=== PATIENT | male | born 1950 | race Two or more races ===

== ENCOUNTER 2023-03-18 10:33 | Outpatient (AMB) | payer OTHER, MEDICARE, SELFPAY ==
--- NOTE | 2023-03-18 10:46 | A.OFFVIS_ITS ---
Intake Vital Signs 03/18/23 10:55 Height 5 ft 6 in Weight 187 lb BMI 30.2 BP 112/70 Blood Pressure Location Rt brachial Position Sitting Pulse 69 Pulse Source Pulse Oximeter Pulse Oximetry (%) 96 Oxygen Delivery Method Room Air Intake Visit Reasons: NPV-Memory Changes-LVM Intake Note: Pt presents to the office today for a new patient visit or memory changes. Pt is here with his . Pts states that he had a hospital visit in September and since then has been asking questions and within a half hour would repeat the same questions. Pts also states she keeps an eye on him whenever he is using the stove because he might forget to turn it off. Pts is most concerned about the repetition of questions and comments. Accompanied by: Spouse Allergies No Known Allergies Allergy (Verified 03/18/23 10:47) Medication List - Last Reconciled 03/18/23 by Loulou Mason MD aspirin 81 mg PO DAILY atorvastatin 10 mg PO BEDTIME carvedilol 25 mg PO BID digoxin 125 mcg PO DAILY famotidine 40 mg PO DAILY furosemide 20 mg PO BID rivaroxaban (Xarelto) 20 mg PO DAILY sacubitril-valsartan 97-103 mg (Entresto) 1 tab PO BID HPI HPI Comments History of Present Illness Details 72y/o male comes here for evaluation of memory issues.He is accompanied by his who helps with history.His noticed short term memory issues for 18 mths now. He had cardiac issues ( Atrial fibrillation, CHF, PE)and was hospitalized twice since last year. His home PT and VNA noticed that he was repeating questions, had difficulty following instructions etc. Now he frequently repeats himself, frequently loses his keys around the house,confused with dates etc. He is independent in all his ADLs. He has not been driving since his hospitalization 5 mths ago. He denies any depression anxiety.He has insomnia. He can fall asleep but has frequent arousals. He denies witnessed apneas or gasping arousals.He has poor sleep hygiene and sleeps during daytime. 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 He has h/o alcohol dependance- stopped 1 year ago.He used to drink 3-4 beers a days since age 13. His father was an alcoholic. [facility] Medical History (Updated 03/18/23 @ 11:36 by Loulou Mason MD) Alcohol dependence Borderline hyperlipidemia Cardiomyopathy CHF (congestive heart failure) Cognitive disorder Dilation of thoracic aorta Dupuytren contracture Exotropia Hypertension Mitral regurgitation Paroxysmal atrial fibrillation Poor sleep hygiene Pulmonary embolism Retinal drusen Right shoulder pain Sleep disorder Snoring Surgical History History of hernia repair History of hydrocelectomy Family History Father Cerebrovascular accident (CVA) Alcoholism UGI bleed Mother Diabetes Social History Household Members: Spouse and Family Housing: House Alcohol intake: never Patient Tobacco Use Status: Never used Tobacco service: No Current occupational status: retired Physical Exam Vital Signs: Last Vital Signs Pulse 69 03/18/23 10:55 BP 112/70 03/18/23 10:55 Pulse Ox 96 03/18/23 10:55 Oxygen Delivery Method Room Air 03/18/23 10:55 BMI result Body Mass Index 30.2 Const General: cooperative, healthy appearing and comfortable Nutritional Appearance: overweight Orientation/consciousness: patient oriented x3 Eyes Pupils: Equal, round and reactive pupils present Neuro Other: mild generalized weakness Gait- slow General: patient oriented x3, tone normal, moves all extremities and no focal motor deficits Cranial nerves: Yes Facial sensation intact/muscles of mastication intact, Yes Equal, round and reactive pupils present, Yes Bilaterally intact EOM present, Yes Nystagmus not present, Yes Normal facial strength present, Yes Midline tongue present and Yes Symmetric palate elevation present Gait exam (Neuro): Antalgic gait present Motor exam (neuro): 5/5 motor strength present throughout, no tremor noted and Normal motor muscle tone present throughout Deep tendon reflexes (DTR's): Right triceps reflex intensity grade: 1+, Left triceps reflex intensity grade: 1+, Rt Biceps (C5, C6): 1+, Left biceps reflex intensity grade: 1+, Right brachioradialis reflex intensity grade: 1+, Left brachioradialis reflex intensity grade: 1+, Right patellar reflex intensity grade: 1+ and Left patellar reflex intensity grade: 1+ Coordination: [id number] test normal Psych Appearance: grossly normal Orientation What is the (year) (season) (date) (day) (month)?: year, season, date and month Where are we (state) (county) (town or city) (hospital) (floor)?: state, county, town or city, hospital/clinic and floor Registration Name of 3 unrelated objects clearly and slowly, then ask patient to repeat all 3 of them. (1st repeat determines score. Make sure they can repeat all three): object 1, object 2 and object 3 Attention & Calculation (CHOOSE ONE) Spell WORLD backwards (DLROW): 5 letters Recall Ask patient to repeat the 3 items from question #3.: object 1 Language Show patient a wristwatch & ask what it is. Repeat for pencil.: watch and pencil Ask the patient to repeat the phrase 'No ifs, ands, or buts' after you.: correct Ask the patient to 'take a piece of paper with their right hand' 'fold paper in half' 'place paper on floor': take paper in right hand, fold paper in half and place paper on floor Print the sentence 'CLOSE YOUR EYES' on a piece. If patient actually closes eyes then score.: followed written direction Give patient a blank piece of paper & ask to write a sentence. Score if it contains a noun & verb.: sentence contains subject and verb Ask patient to copy figure of intersecting pentagons exactly. Score if all 10 angles & 2 intersects are included.: all 10 angles present & 2 are intersected Score Score: 27 Assessment & Plan Assessment & Plan (1) Cognitive disorder: Comment: multifactorial , vascular , alcohol , poor sleep . He did well on MMSE. Code(s): F09 - Unspecified mental disorder due to known physiological condition (2) Sleep disorder: Comment: insomnia, poor sleep hygiene, snoring, hypersomnia Code(s): G47.9 - Sleep disorder, unspecified (3) Poor sleep hygiene: Code(s): Z72.821 - Inadequate sleep hygiene (4) Snoring: Code(s): R06.83 - Snoring Plan I will evaluate him with MRI brain Labs TSH B12 Homocysteine CBC CMP ESR Discussed sleep hygiene in detail AVoid long daytime naps sleep study to r/o sleep apnea. Orders: Orders MR head/brain wo con Today F09 - Unspecified mental disorder due to known physiological condition Vitamin B12 and Folate Today F09 - Unspecified mental disorder due to known physiological condition Comprehensive Met. Panel Today F09 - Unspecified mental disorder due to known physiological condition TSH reflex Free T4 Today F09 - Unspecified mental disorder due to known physiological condition Complete Blood Count Auto Diff Today F09 - Unspecified mental disorder due to known physiological condition Erythrocyte Sedimentation Rate Today F09 - Unspecified mental disorder due to known physiological condition RT PSG in-lab sleep study Today G47.9 - Sleep disorder, unspecified, I42.9 - Cardiomyopathy, unspecified, I48.0 - Paroxysmal atrial fibrillation, R06.83 - Snoring Coding Level of Care Code New Pt Level 4 (40280) Diagnoses Cognitive disorder F09 Sleep disorder G47.9 Poor sleep hygiene Z72.821 Snoring R06.83
[2023-03-18 10:55] VITALS: BP 112/70; PULSE 69; O2SAT 96; BMI 30.2
== END 2023-03-18 11:43 | disposition home or self-care (01) ==
PROVIDERS: Visit Provider Psychiatry & Neurology Neurology
DX: R41.89 Other symptoms and signs involving cognitive functions and awareness (principal); G47.9 Sleep disorder, unspecified; Z72.821 Inadequate sleep hygiene; R06.83 Snoring
CPT/HCPCS: 99204

== ENCOUNTER → 2023-03-18 10:33 | Outpatient (BNVA) | payer OTHER, MEDICARE, SELFPAY | PROVIDERS: Visit Provider Psychiatry & Neurology Neurology ==

== ENCOUNTER 2023-04-22 07:06 | Outpatient (REF) | payer OTHER, MEDICARE, SELFPAY ==
--- NOTE | ~2023-04-22 | MR_ITS ---
EXAMINATION: MR BRAIN WITHOUT CONTRAST CLINICAL INFORMATION: Confusion. Head injury 5 views prior. COMPARISON: None available. TECHNIQUE: MRI of the brain was obtained using routine sequences without contrast. FINDINGS: No focal restricted diffusion is demonstrated to suggest acute or subacute cerebral ischemia. No evidence of acute or chronic hemorrhagic products on heme-sensitive imaging. Scattered and partially confluent periventricular, deep white matter, and brainstem T2 FLAIR hyperintensities consistent with moderate underlying microangiopathy. Proportional prominence of the ventricles and sulcal spaces without evidence of obstructive hydrocephalus. No abnormal mass effect. No midline shift. Normal appearance of the pituitary gland. Normal positioning of the cerebellar tonsils. Normal arterial and venous vascular flow voids are present. Normal, homogeneous marrow signal. Mild mucosal thickening of the paranasal sinuses. No signal abnormalities within the mastoids. Bilateral lens extractions. MR/MR head/brain wo con IMPRESSION: 1. No acute intracranial abnormalities. 2. Moderate underlying microangiopathy and generalized cerebral volume loss.
== END 2023-04-22 07:07 | disposition home or self-care (01) ==
LOC: HO.MRI 07:06
PROVIDERS: PCP Internal Medicine; Visit Provider Psychiatry & Neurology Neurology
DX: F09 Unspecified mental disorder due to known physiological condition (principal)
CPT/HCPCS: 70551

== ENCOUNTER → 2023-06-03 13:41 | Outpatient (REF) | payer OTHER, MEDICARE, SELFPAY | LOC: HO.SL 13:41 | PROVIDERS: PCP Internal Medicine; Visit Provider Psychiatry & Neurology Neurology | DX: R06.83 Snoring (principal); G47.9 Sleep disorder, unspecified; I48.0 Paroxysmal atrial fibrillation | CPT/HCPCS: 95806 ==

== ENCOUNTER → 2023-06-03 13:56 | Outpatient (BNV) | payer OTHER, MEDICARE, SELFPAY | PROVIDERS: PCP Internal Medicine; Visit Provider Internal Medicine | DX: R06.83 Snoring (principal) | CPT/HCPCS: 95806 ==

== ENCOUNTER 2023-07-01 08:54 | Outpatient (AMB) | payer OTHER, MEDICARE, SELFPAY ==
--- NOTE | 2023-07-01 08:57 | A.OFFVIS_ITS ---
Intake Vital Signs 07/01/23 08:58 Height 5 ft 6 in Weight 186 lb 2 oz BMI 30.0 BP 132/80 Blood Pressure Location Rt brachial Position Sitting Respiration 16 Pulse 96 Pulse Source Pulse Oximeter Pulse Oximetry (%) 98 Oxygen Delivery Method Room Air Intake Visit Reasons: 3m f/u Memory Changes - Confirmed Intake Note: Pt presents for a 3 month follow up for memory changes. Sports Media Required: No Allergies No Known Allergies Allergy (Verified 07/01/23 09:02) HPI HPI Comments History of Present Illness Details 72y/o male comes here for follow up of [place] health issues.He is accompanied by his who helps with history.His MRI was unremarkable Home sleep study was normal Labs were normal His memory is the same. Previous history-His noticed short term memory issues for 18 mths now. He had cardiac issues ( Atrial fibrillation, CHF, PE)and was hospitalized twice since last year. His home PT and VNA noticed that he was repeating questions, had difficulty following instructions etc. Now he frequently repeats himself, frequently loses his keys around the house,confused with dates etc. He is independent in all his ADLs. He has not been driving since his hospitalization 5 mths ago. He denies any depression anxiety.He has insomnia. He can fall asleep but has frequent arousals. He denies witnessed apneas or gasping arousals.He has poor sleep hygiene and sleeps during daytime. 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 He has h/o alcohol dependance- stopped 1 year ago.He used to drink 3-4 beers a days since age 13. His father was an alcoholic. [facility] Medical History Snoring Poor sleep hygiene Sleep disorder Cognitive disorder Mitral regurgitation Right shoulder pain Hypertension Dupuytren contracture Exotropia Alcohol dependence Dilation of thoracic aorta Retinal drusen Borderline hyperlipidemia Pulmonary embolism CHF (congestive heart failure) Paroxysmal atrial fibrillation Cardiomyopathy Surgical History History of hydrocelectomy History of hernia repair Family History Father Cerebrovascular accident (CVA) Alcoholism UGI bleed Mother Diabetes Social History Household Members: Spouse and Family Housing: House Alcohol intake: never Patient Tobacco Use Status: Never used Tobacco service: No Current occupational status: retired Physical Exam Vital Signs: Last Vital Signs Pulse 96 07/01/23 08:58 Resp 16 07/01/23 08:58 BP 132/80 07/01/23 08:58 Pulse Ox 98 07/01/23 08:58 Oxygen Delivery Method Room Air 07/01/23 08:58 BMI result Body Mass Index 30.0 Const General: cooperative, healthy appearing and comfortable Nutritional Appearance: overweight Orientation/consciousness: patient oriented x3 Eyes Pupils: Equal, round and reactive pupils present Neuro Other: mild generalized weakness Gait- slow General: patient oriented x3, tone normal, moves all extremities and no focal motor deficits Cranial nerves: Yes Facial sensation intact/muscles of mastication intact, Yes Equal, round and reactive pupils present, Yes Bilaterally intact EOM present, Yes Nystagmus not present, Yes Normal facial strength present, Yes Midline tongue present and Yes Symmetric palate elevation present Gait exam (Neuro): Antalgic gait present Motor exam (neuro): 5/5 motor strength present throughout, no tremor noted and Normal motor muscle tone present throughout Coordination: [id number] test normal Psych Appearance: grossly normal Results Reviewed Results Reviewed: EXAMINATION: MR BRAIN WITHOUT CONTRAST CLINICAL INFORMATION: Confusion. Head injury 5 views prior. COMPARISON: None available. TECHNIQUE: MRI of the brain was obtained using routine sequences without contrast. FINDINGS: No focal restricted diffusion is demonstrated to suggest acute or subacute cerebral ischemia. No evidence of acute or chronic hemorrhagic products on heme-sensitive imaging. Scattered and partially confluent periventricular, deep white matter, and brainstem T2 FLAIR hyperintensities consistent with moderate underlying microangiopathy. Proportional prominence of the ventricles and sulcal spaces without evidence of obstructive hydrocephalus. No abnormal mass effect. No midline shift. Normal appearance of the pituitary gland. Normal positioning of the cerebellar tonsils. Normal arterial and venous vascular flow voids are present. Normal, homogeneous marrow signal. Mild mucosal thickening of the paranasal sinuses. No signal abnormalities within the mastoids. Bilateral lens extractions. MR/MR head/brain wo con IMPRESSION: 1. No acute intracranial abnormalities. 2. Moderate underlying microangiopathy and generalized cerebral volume Assessment & Plan Assessment & Plan (1) Cognitive disorder: Comment: multifactorial , vascular , alcohol , poor sleep . He did well on MMSE. Code(s): F09 - Unspecified mental disorder due to known physiological condition (2) Sleep disorder: Comment: insomnia, poor sleep hygiene, snoring, hypersomnia Code(s): G47.9 - Sleep disorder, unspecified (3) Poor sleep hygiene: Code(s): Z72.821 - Inadequate sleep hygiene (4) Snoring: Code(s): R06.83 - Snoring Plan Discussed about cognitive exercises Discussed sleep hygiene in detail AVoid long daytime naps will follow up clinically Increase physical activity Coding Level of Care Code Est Pt Level 4 (96707) Diagnoses Cognitive disorder F09 Sleep disorder G47.9 Poor sleep hygiene Z72.821 Snoring R06.83
[2023-07-01 08:58] VITALS: BP 132/80; PULSE 96; RESP 16; O2SAT 98
== END 2023-07-01 09:20 | disposition home or self-care (01) ==
PROVIDERS: PCP Internal Medicine; Visit Provider Psychiatry & Neurology Neurology
DX: R41.89 Other symptoms and signs involving cognitive functions and awareness (principal); G47.9 Sleep disorder, unspecified; Z72.821 Inadequate sleep hygiene; R06.83 Snoring
CPT/HCPCS: 99214

== ENCOUNTER → 2023-07-01 08:54 | Outpatient (BNVA) | payer OTHER, MEDICARE, SELFPAY | PROVIDERS: PCP Internal Medicine; Visit Provider Psychiatry & Neurology Neurology | DX: F09 Unspecified mental disorder due to known physiological condition (principal); R06.83 Snoring; G47.9 Sleep disorder, unspecified; I48.0 Paroxysmal atrial fibrillation; I42.9 Cardiomyopathy, unspecified ==

== ENCOUNTER 2024-04-22 12:09 | Outpatient (AMB) | payer MEDICARE, OTHER, SELFPAY ==
--- NOTE | 2024-04-22 12:22 | MHC.OFFVIS ---
Vital Signs 04/22/24 12:23 Height 5 ft 6 in Weight 198 lb BMI 32.0 BP 140/90 H Blood Pressure Location Rt brachial Position Sitting Respiration 16 Pulse 85 Pulse Source Pulse Oximeter Pulse Oximetry (%) 98 Oxygen Delivery Method Room Air Intake Visit Reasons: 6 mo f/u - Memory Changes Intake Note: Pt presents for a 10 month follow up for cognitive disorder. Medical Sales Consultant Required: No Allergies No Known Allergies Allergy (Verified 04/22/24 12:23) HPI Comments Details: 73y/o male comes here for follow up of memory issues.No change since last visit.His sleep is better .11pm- 7am .Takes a nap at 12 noon He is accompanied by his who helps with history.His MRI was unremarkable Home sleep study was normal Labs were normal History from initial visit-His noticed short term memory issues for 18 mths now. He had cardiac issues ( Atrial fibrillation, CHF, PE)and was hospitalized twice since last year. His home PT and VNA noticed that he was repeating questions, had difficulty following instructions etc. Now he frequently repeats himself, frequently loses his keys around the house,confused with dates etc. He is independent in all his ADLs. He has not been driving since his hospitalization 5 mths ago. He denies any depression anxiety.He has insomnia. He can fall asleep but has frequent arousals. He denies witnessed apneas or gasping arousals.He has poor sleep hygiene and sleeps during daytime. 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 He has h/o alcohol dependance- stopped 1 year ago.He used to drink 3-4 beers a days since age 13. His father was an alcoholic. [facility] Medical History Snoring Poor sleep hygiene Sleep disorder Cognitive disorder Mitral regurgitation Right shoulder pain Hypertension Dupuytren contracture Exotropia Alcohol dependence Dilation of thoracic aorta Retinal drusen Borderline hyperlipidemia Pulmonary embolism CHF (congestive heart failure) Paroxysmal atrial fibrillation Cardiomyopathy Surgical History History of hydrocelectomy History of hernia repair Family History Father Cerebrovascular accident (CVA) Alcoholism UGI bleed Mother Diabetes Social History Household Members: Spouse and Family Housing: House Alcohol intake: never Patient Tobacco Use Status: Never used Tobacco service: No Current occupational status: retired Physical Exam Vital Signs: Last Vital Signs Pulse 85 04/22/24 12:23 Resp 16 04/22/24 12:23 BP 140/90 H 04/22/24 12:23 Pulse Ox 98 04/22/24 12:23 Oxygen Delivery Method Room Air 04/22/24 12:23 BMI result Body Mass Index 32.0 Const General: cooperative, healthy appearing and comfortable Nutritional Appearance: overweight Orientation/consciousness: patient oriented x3 Eyes Pupils: Equal, round and reactive pupils present Neuro Other: mild generalized weakness Gait- slow General: patient oriented x3, tone normal, moves all extremities and no focal motor deficits Cranial nerves: Yes Facial sensation intact/muscles of mastication intact, Yes Equal, round and reactive pupils present, Yes Bilaterally intact EOM present, Yes Nystagmus not present, Yes Normal facial strength present, Yes Midline tongue present and Yes Symmetric palate elevation present Gait exam (Neuro): Antalgic gait present Motor exam (neuro): 5/5 motor strength present throughout, no tremor noted and Normal motor muscle tone present throughout Coordination: [id number] test normal Psych Appearance: grossly normal Assessment & Plan Assessment & Plan (1) Cognitive disorder: Comment: multifactorial , vascular , alcohol , poor sleep . He did well on MMSE. Code(s): F09 - Unspecified mental disorder due to known physiological condition Category: Medical (2) Sleep disorder: Comment: insomnia, poor sleep hygiene, snoring, hypersomnia Code(s): G47.9 - Sleep disorder, unspecified Category: Medical (3) Poor sleep hygiene: Code(s): Z72.821 - Inadequate sleep hygiene Category: Medical Plan Discussed sleep hygiene in detail AVoid long daytime naps will follow up clinically Increase physical activity and cognitive activity Coding Level of Care Code Est Pt Level 4 (03267) Complex EM visit Add On G2211 Diagnoses Cognitive disorder F09 Sleep disorder G47.9 Poor sleep hygiene Z72.821
[2024-04-22 12:23] VITALS: BP 140/90; PULSE 85; RESP 16; O2SAT 98; BMI 32.0
== END 2024-04-22 12:39 | disposition home or self-care (01) ==
PROVIDERS: PCP Internal Medicine; Visit Provider Psychiatry & Neurology Neurology
DX: R41.89 Other symptoms and signs involving cognitive functions and awareness (principal); G47.9 Sleep disorder, unspecified; Z72.821 Inadequate sleep hygiene
CPT/HCPCS: 99214

== ENCOUNTER → 2024-04-22 12:09 | Outpatient (BNVA) | payer MEDICARE, OTHER, SELFPAY | PROVIDERS: PCP Internal Medicine; Visit Provider Psychiatry & Neurology Neurology ==